=== PATIENT | female | born 1985 | race Caucasian/White ===

== ENCOUNTER 2020-12-06 19:11 | Inpatient (IN) | payer MEDICAID, OTHER ==
[~2020-12-06] VITALS: Ht 175.3 cm; Wt 156.9 kg
[2020-12-06] MEDS ORDERED: PROMETHAZINE HCL 25 MG/ML 1ML AMPULE IM PRN (19:30)
[2020-12-06] MEDS ORDERED: MEPERIDINE-PF 50 MG/ML SYG IVP PRN (19:30)
[2020-12-06] MEDS ORDERED: OXYTOCIN-LR 20 UNITS/1000 ML 1,000 ML IV SCH (19:30)
[2020-12-06 19:58] LABS: APPEARANCE,URINE Clear (CLEAR); BILIRUBIN,URINE Negative (NEGATIVE); COLOR,URINE Yellow (YELLOW); GLUCOSE, URINE (UA) Negative (NEGATIVE); KETONES,URINE Negative (NEGATIVE); LEUKOCYTE ESTERASE ,URINE Negative (NEGATIVE); NITRATE,URINE Negative (NEGATIVE); OCCULT BLOOD,URINE Negative (NEGATIVE); PROTEIN,URINE Negative (NEGATIVE); UROBILINOGEN,URINE 0.2 mg/dL (0.2-1.0)
[2020-12-06 20:57] LABS: HEMATOCRIT 32.9 % (36-48); MEAN CORPUSCULAR HEMOGLOBIN 30.4 pg (27.0-33.0); MEAN CORPUSCULAR HGB CONC 32.8 g/dL (32.0-36.0); MEAN CORPUSCULAR VOLUME 92.7 fL (79-99); RED BLOOD CELL COUNT(AUTO) 3.55 MIL/uL (4.00-5.50); RED CELL DISTRIBUTION WIDTH 13.8 % (11.0-15.5); WHITE BLOOD COUNT (AUTO) 12.7 K/uL (4.8-10.8)
[2020-12-06 21:00] VITALS: BP 154/74
[2020-12-06] MEDS: LACTATED RINGERS 1000ML 1,000 ML IV PRN (21:15)
[2020-12-06] MEDS ORDERED: DINOPROSTONE 10 MG VAGINAL SUPP VG SCH (22:00)
[2020-12-06] MEDS ORDERED: [UNRECOGNIZED DRUG - OTHER] PO (23:31)
[2020-12-06] MEDS ORDERED: PREN1TAB80 PO (23:31)
[2020-12-06] MEDS ORDERED: ALBU0.63 IH (23:31)
[2020-12-06] MEDS ORDERED: OMEP20CA12 PO (23:31)
[2020-12-07] VITALS (7 sets, daily range): BP systolic 139–156; BP diastolic 80–104
[2020-12-07] MEDS: LACTATED RINGERS 1000ML 1,000 ML IV PRN (03:00)
[2020-12-07] MEDS ORDERED: OXYTOCIN-LR 20 UNITS/1000 ML 1,000 ML IV SCH ×2 (07:00→13:00)
[2020-12-07] MEDS ORDERED: NALOXONE HCL 0.4 MG/1 ML ML IV PRN (07:45)
[2020-12-07] MEDS ORDERED: LACTATED RINGERS 500 ML 500 ML IV PRN (07:45)
[2020-12-07] MEDS ORDERED: EPHEDRINE SULFATE 50 MG/ML AMPULE IVP PRN (07:45)
[2020-12-07 07:58] LABS: INR 0.94 (0.85-1.15); PROTHROMBIN TIME 10.3 SEC (9.6-11.6)
[2020-12-07 07:59] LABS: PARTIAL THROMBOPLASTIN TIME 25.6 SEC (26.3-35.5)
[2020-12-07 08:02] LABS: ALBUMIN 2.3 g/dL (3.5-5.0); BILIRUBIN,TOTAL 0.2 mg/dL (0.2-1.0); CREATININE 0.8 mg/dL (0.5-1.5); POTASSIUM 3.9 mmol/L (3.5-5.1); URIC ACID 5.3 mg/dL (2.6-7.2)
[2020-12-07] MEDS ORDERED: ROCURONIUM 10MG/1ML SYR 10 MG/ML ML ONE (09:57)
[2020-12-07] MEDS ORDERED: PROPOFOL 10 MG/ML 20ML VIAL IV ONE (09:57)
[2020-12-07] MEDS ORDERED: LIDOCAINE HCL-MPF 1% 5ML AMP IJ ONE (09:57)
[2020-12-07] MEDS ORDERED: FENTANYL CITRATE PF 50 MCG/1 ML 2ML VIAL ONE (09:58)
[2020-12-07] MEDS ORDERED: EPHEDRINE SULFATE 50 MG/ML AMPULE ONE (10:08)
[2020-12-07] MEDS ORDERED: ACETAMINOPHEN WITH CODEINE 1 TAB TAB PO PRN (13:00)
[2020-12-07] MEDS ORDERED: BENZOCAINE/LANOLIN/ALOE VERA 60 ML AEROSOL TP PRN (13:00)
[2020-12-07] MEDS ORDERED: ACETAMINOPHEN 325 MG TAB PO PRN (13:00)
[2020-12-07] MEDS ORDERED: WITCH HAZEL 1 PAD TP PRN (13:00)
[2020-12-07] MEDS ORDERED: MEASLES/MUMPS/RUBELLA VACCINE, LIVE 0.5 ML/VIAL SQ PRN (13:00)
[2020-12-07] MEDS ORDERED: LANOLIN 30GM OINTMENT TP PRN (13:00)
[2020-12-07] MEDS ORDERED: DIPH,PERTUSS(ACELL),TET VAC/PF 0.5 ML VIAL IM PRN (13:00)
[2020-12-07] MEDS: IBUPROFEN 600 MG TABLET PO PRN (15:22)
[2020-12-07] MEDS: DOCUSATE SODIUM 100 MG CAP PO SCH (21:07)
[2020-12-08 04:01] VITALS: BP 146/87
[2020-12-08] MEDS: IBUPROFEN 600 MG TABLET PO PRN ×2 (04:01→09:29)
[2020-12-08] MEDS ORDERED: CITRIC ACID/SODIUM CITRATE 30 ML UDCUP ONE (04:55)
[2020-12-08 06:42] VITALS: BP 137/80
[2020-12-08 07:16] LABS: HEPATITIS Bs ANTIGEN SCREEN P Negative (Negative)
[2020-12-08] MEDS: DOCUSATE SODIUM 100 MG CAP PO SCH (09:29)
[2020-12-08 09:31] VITALS: BP 155/88
[2020-12-08 12:28] VITALS: BP 154/93
== END 2020-12-08 14:25 | disposition home or self-care (01) | DRG 807 ==
LOC: LDH 19:11 → WSH 12-07 15:25 → PREOBSVTOIN 12-09 19:08
PROVIDERS: ADMIT Obstetrics & Gynecology; ATTEND Obstetrics & Gynecology
PROC: 10E0XZZ Delivery of Products of Conception, External Approach (ICD-10-PCS; principal; 2020-12-07)
PROC: 10907ZC Drainage of Amniotic Fluid, Therapeutic from Products of Conception, Via Natural or Artificial Opening (ICD-10-PCS; 2020-12-07)
PROC: 3E033VJ Introduction of Other Hormone into Peripheral Vein, Percutaneous Approach (ICD-10-PCS; 2020-12-07)
PROC: 3E0R3BZ Introduction of Anesthetic Agent into Spinal Canal, Percutaneous Approach (ICD-10-PCS; 2020-12-07)
PROC: 00HU33Z Insertion of Infusion Device into Spinal Canal, Percutaneous Approach (ICD-10-PCS; 2020-12-07)
PROC: 3E0234Z Introduction of Serum, Toxoid and Vaccine into Muscle, Percutaneous Approach (ICD-10-PCS; 2020-12-07)
PROC: 3E0134Z Introduction of Serum, Toxoid and Vaccine into Subcutaneous Tissue, Percutaneous Approach (ICD-10-PCS; 2020-12-07)
DX: O77.0 Labor and delivery complicated by meconium in amniotic fluid (principal); Z37.0 Single live birth; Z3A.39 39 weeks gestation of pregnancy; O99.214 Obesity complicating childbirth; E66.01 Morbid (severe) obesity due to excess calories; Z23 Encounter for immunization
CPT/HCPCS: 36415; 76805; 80053; 81003; 84550; 85027; 85384; 85610; 85730; 86592; 86701; 86850; 86900; 86901; 87340; 87390; A4314; G0378; J2590; J2704; J3010; J3490; J7120

== ENCOUNTER 2023-06-25 15:05 | Emergency (ER) | payer MEDICAID, OTHER ==
[~2023-06-25] VITALS: Ht 170.2 cm; Wt 158.8 kg
[~2023-06-25 15:05] MED LIST: ALBU0.63 IH; OMEP20CA12 PO; PREN1TAB80 PO; [UNRECOGNIZED DRUG - OTHER] PO
[2023-06-25 15:13] VITALS: BP 175/97; PULSE 96; RESP 16; O2SAT 100
[2023-06-25] MEDS ORDERED: TETRACAINE HCL 0.5% 4 ML OPHTH SOLN ONE (18:06)
[2023-06-25] MEDS ORDERED: FLUORESCEIN SODIUM 1 STRIP STRIP ONE (18:06)
[2023-06-25] MEDS ORDERED: OFLO5DRO OD (19:28)
[2023-06-25] MEDS ORDERED: KETO5DRO82 OP (19:28)
[2023-06-25] MEDS ORDERED: HYDR-4060 PO (19:28)
== END 2023-06-25 19:43 | disposition home or self-care (01) ==
LOC: EDH 15:05
DX: S05.01XA Injury of conjunctiva and corneal abrasion without foreign body, right eye, initial encounter (principal); H57.11 Ocular pain, right eye; X58.XXXA Exposure to other specified factors, initial encounter; Y93.89 Activity, other specified; Y92.89 Other specified places as the place of occurrence of the external cause; Y99.8 Other external cause status